=== PATIENT | female | born 1945 | race Caucasian/White ===

== ENCOUNTER → 2016-11-11 09:35 | Outpatient (CLI) | payer MEDICARE, BC ==
[~2016-11-11 09:35] MED LIST: ACETAMINOPHEN500 M1 PO; ADVIL200 MG PO; ATIVAN2 MG/ML IM; CARDIZEM30 MG PO; CLARITIN 10 MG10 MG PO; DEPAKOTE SPRIN125 MG PO; DYAZIDE 37.5/251 CAP PO; FLORANEX / LACT1 TAB PO; GAS-X80 MG PO; HALDOL5 MG/ML IM; HYDROCODONE-APA1 TAB PO; LEXAPRO20 MG PO; LISINOPRIL10 MG PO; MOTRIN PM CAPL1 EACH PO; NORVASC2.5 MG PO; NORVASC5 MG PO; PEPCID20 MG PO; VITAMIN D3400 UNI1 PO
== END | disposition home or self-care (01) ==
LOC: D.RAD 09:00
DX: M25.511 Pain in right shoulder (principal); M54.2 Cervicalgia

== ENCOUNTER 2017-01-15 15:37 | Inpatient (IN) | payer MEDICARE, BC ==
[2017-01-15 17:21] LABS: BASOPHILS 0.3 % (0-2); EOSINOPHILS 1.8 % (0-7); HEMATOCRIT 38.7 % (36.0-48.0); HEMOGLOBIN 12.5 g/dL (12-16); IMMATURE GRANULOCYTES 0.2 % (0-5); LYMPHOCYTES 24.1 % (15-50); MCH 29.4 pg (26.0-34.0); MCHC 32.3 g/dL (31.0-37.0); MCV 91.1 fL (80.0-100.0); MEAN PLATELET VOLUME 10.2 fL (7.4-10.4); MONOCYTES 8.8 % (2-11); NEUTROPHILS 64.8 % (40-80); RBC 4.25 10x6/uL (4.00-5.40); RDW 14.2 % (11.5-14.5); WBC 8.9 10x3/uL (4.8-10.8)
[2017-01-15 17:30] LABS: PLATELET COUNT 236 10x3/uL (130-400)
[2017-01-15 17:42] LABS: UDS - AMPHET NEGATIVE QUAL (NEGATIVE); UDS - BARB NEGATIVE QUAL (NEGATIVE); UDS - BENZO NEGATIVE QUAL (NEGATIVE); UDS - COCAINE NEGATIVE QUAL (NEGATIVE); UDS - OPIATE POSITIVE QUAL (NEGATIVE); UDS - PCP NEGATIVE QUAL (NEGATIVE); UDS - THC NEGATIVE QUAL (NEGATIVE)
[2017-01-15 17:45] LABS: ALBUMIN 3.5 g/dL (3.4-5.0); ALKALINE PHOSPHATASE 87 U/L (46-116); ALT (SGPT) 24 U/L (10-68); CALC OSMOLALITY 274 mosm/kg (275-300); CALCIUM 8.5 mg/dL (8.5-10.1); CARBON DIOXIDE 28.4 mmol/L (21.0-32.0); CHLORIDE - SERUM 102 mmol/L (98-107); CREATININE - SERUM 0.6 mg/dL (0.6-1.3); GLUCOSE 94 mg/dL (74-106); POTASSIUM - SERUM 3.6 mmol/L (3.5-5.1); SODIUM 138 mmol/L (136-145); UREA NITROGEN 10 mg/dL (7-18); eGFR NON AFRICAN AMERICAN > 90 mL/min (90-120)
[2017-01-15 18:06] LABS: APPEARANCE CLEAR (CLEAR); BILIRUBIN NEGATIVE (NEGATIVE); COLOR YELLOW (YELLOW); GLUCOSE NEGATIVE (NEGATIVE); KETONE NEGATIVE (NEGATIVE); NITRITE NEGATIVE (NEGATIVE); PROTEIN NEGATIVE (NEGATIVE); UROBILINOGEN NORMAL (NORMAL)
[2017-01-15 18:07] LABS: BACTERIA FEW /hpf (NONE SEEN); EPITHELIAL CELLS 0-5 /hpf (0-5); RED CELLS - URINE OCC /hpf (0-5)
--- NOTE | 2017-01-15 22:34 | NUR ---
[facility] ACCOMPANIED BY HOSPITAL STAFF AND SECURITY, PATIENT IS RESTLESS AND AGGITATED, PATIENT WAS PLACED ON [address] MOTLEY DUE TO PSYCHOSIS AND DELUSIONS, CODE WORD PER EMERGENCY CONTACT IS Subhash SANDOVAL STATED THAT PATIENT RECIEVED HALDOL 5 MG IM AND ATIVAN 2 MG IM PRIOR TO TRANSPORT TO HALF-WAY, PATIENT IS SLEEPY AND WENT STRIAGHT TO BED ON ARRIVAL TO HALF-WAY.
[2017-01-15] MEDS ORDERED: LIPITOR20 MG PO (22:57)
[2017-01-15] MEDS ORDERED: FUROSEMIDE20 MG PO (22:57)
[2017-01-15] MEDS ORDERED: AMOXICILLIN500 M1 PO (22:58)
[2017-01-15] MEDS ORDERED: TYLENOL W/CODEI1 TAB PO (23:03)
[2017-01-15] MEDS ORDERED: PLAVIX75 MG PO (23:06)
[2017-01-15] MEDS ORDERED: TIAZAC/CARDIZE240 M1 PO (23:09)
[2017-01-15 23:51] LABS: HEMOGLOBIN A1C 6.1 % (4.8-6.0)
[2017-01-15 23:57] VITALS: BP 175/73; BMI 22.9
[2017-01-16 00:02] LABS: CHOL - HDL RATIO 2.3 ratio (2.3-4.1); THYROID STIMULATING HORMONE 2.61 uIU/mL (0.36-3.74)
--- NOTE | 2017-01-16 09:00 | NUR ---
B) PATIENT IS AWAKE, BUT WANTS TO SLEEP, SHE GOT HER OWN TRAY EVEN THOUGH SHE WAS TOLD MULTIPLE TIMES THAT STAFF WOULD GET IT FOR HER AND SHE TRIED TO ANSWER THE TELEPHONE EVEN THOUGH SHE WAS TOLD NOT TO ANSWER IT. SHE AMBULATES AND SHE SAYS SHE WANTS TO STAY IN BED. PATIENT ALSO STATES "I DON'T WANT ANYTHING TO KNOCK ME OUT, I AM ALREADY KNOCKED OUT" MEDICATION EDUCATION PROVIDED. I) PROVIDE PRESCRIBED MEDS. R) PATIENT IS COMPLIANT WITH MEDS. PATIENT IS SITTING UP AND SHE IS SLEEPING IN A CHAIR IN THE DAY ROOM. P) CONTINUE POC.
[2017-01-16 09:52] VITALS: BP 140/68
[2017-01-16 10:05] VITALS: BMI 22.8
[2017-01-16 19:37] VITALS: BP 126/56
--- NOTE | 2017-01-16 22:32 | NUR ---
B) Patient sleepy , arrouses to name, calm and cooperative with care and assessment, I) Administered scheduled medications, monitored for safety, R) Medication compliant, wants to shower herself in morning, P) Continue plan of care.
[2017-01-17 01:33] VITALS: Wt 58.6 kg
[2017-01-17 06:17] LABS: VITAMIN D 25 HYDROXY 31.8 ng/mL (30.0-100.0)
[2017-01-17 08:20] LABS: FOLATE (FOLIC ACID) - SERUM 12.4 ng/mL (>3.0)
--- NOTE | 2017-01-17 08:33 | NUR ---
B) PATIENT IS FLAT TO BLUNTED IN AFFECT. SHE ASKED FOR HER GLASSES THIS AM AND SHE IS TERSE IN HER QUESTIONS AND ANSWERS AND SPEAKS UNDER HER BREATH SHE WALKS AWAY. SHE DOES NOT INTERACT WITH STAFF OR PEERS. SHE AMBULATES WITH AN UNSTEADY GAIT. PATIENT HAS NOT MADE ANY MENTION THIS AM ABOUT "BRAIN SURGERY" OR "DR. ASHLEY". I) PROVIDE PRESCRIBED MEDS. R) PATIENT IS COMPLIANT WITH MEDS AND UNIT MILIEU. P) CONTINUE POC.
[2017-01-17 09:44] VITALS: BP 132/63
--- NOTE | 2017-01-17 11:55 | NUR ---
PATIENT REFUSED HER DEPAKOTE, SHE SAYS SHE WILL REFUSE TODAY AND TALK TO THE TOMORROW ABOUT HER MEDICATION.
[2017-01-17 19:30] VITALS: BP 138/89
--- NOTE | 2017-01-18 03:32 | NUR ---
B) patient is alert and oriented X 4, sleepy , arroused to name, calm and cooperative, I) Administered scheduled medications, monitored for safety R) medication compliant except for Depakote, patient stated she was too sedated to take Depakote, P) Continue plan of care.
--- NOTE | 2017-01-18 06:01 | PN ---
PATIENT:JOLENE GRIDER MEDICAL RECORD: [id number] LOCATION:[facility] ADMISSION DATE: 01/15/17 PROGRESS NOTE DATE OF SERVICE: 01/17/2017 SUBJECTIVE: The patient states "my head is about to explode." OBJECTIVE: The patient continues to appear confused. Speech is tangential. She also continues to exhibit grandiose ideation. She denies having any significant consumption of alcohol or opiates prior to admission, although her drug screen was strongly positive for both. The patient denies the documented facts surrounding her appearance in the Emergency Department. Staff reports the patient continues to be aloof and poorly cooperative. At times, she is conversant and at other times, she is not. The patient had a documented past history of bipolar disorder from multiple previous hospitalizations. This diagnosis was confirmed on her previous hospitalization here. PHYSICAL EXAMINATION: On exam, mood is at the moment euthymic. Affect is brittle. Speech initially is fluent, but becomes tangential as the conversation progresses. Content of thought shows grandiose ideation. Sensorium is unchanged. ASSESSMENT: Bipolar. PLAN: 1. We will add Depakote Sprinkles 250 mg b.i.d. 2. Maintain other medications. 3. Continue supportive therapy. TRANSINT:[id number] Voice Confirmation ID: [id number] DOCUMENT ID: [id number] ALISE LICEA III, MD at 0601 CC: [id number] DICTATION DATE: 01/17/17 1108 DATA OPERATIONS DIRECTOR: 01/17/17 1207 ADM IN [id number] [place] [address]
--- NOTE | 2017-01-18 06:01 | PSY ---
PATIENT NAME:JOLENE GRIDER MEDICAL RECORD: [id number] : 49 LOCATION:[facility] ADMISSION DATE: 01/15/17 ACCOUNT: [id number] PSYCHIATRIC EVALUATION DATE OF EVALUATION: 01/16/17 IDENTIFYING DATA: This is one of numerous lifetime psychiatric contacts and the second [facility] admission for this 71-year-old unmarried white female. HISTORY OF PRESENT ILLNESS: This patient presented to the Emergency Department at [facility] yesterday afternoon. She was extremely agitated and quite confused. She banged on the Emergency Department door and demanded to be admitted for "brain surgery" per Dr. Watt. She threw her keys at the Emergency Room staff and demanded that they move her car for her. When she was informed that Dr. Watt no longer works at [facility], she became extremely irate. She then moved her car and parked in the ambulance bay and it had to of course be moved again. She was assessed by Dr. Wilkerson and felt to be acutely psychotic. Dr. Wilkerson initially placed the patient on a 72-hour hold; but subsequent to this, the patient signed all of her consent forms and so she is no longer on an involuntary status. This patient was admitted to [facility] 2 years ago. At that time, she was diagnosed as having bipolar disorder as well as borderline personality disorder. She had a very difficult hospitalization with frequent episodes of uncooperation, acting out, agitation, and belligerence. However, she was eventually stabilized on Depakote and discharged back home. Contact was maintained at that time with the patient's sister, who lived in [place] at that time. The patient's drug screen on this occasion came back positive for alcohol (1.0) and opiates. She is evidently prescribed opiates on a routine basis by her primary care physician, Dr. Mancilla. Because of severe confusion and current psychosis, the patient is now admitted. PAST MEDICAL HISTORY: Significant for obesity, gastroesophageal reflux disease, osteoarthritis, and hypertension. PAST SURGICAL HISTORY: Includes appendectomy and cholecystectomy. FAMILY HISTORY: Noncontributory. SOCIAL HISTORY: The patient is single. 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 She does not have any children. There is some question as to whether or not she has any substance abuse issue. REVIEW OF SYSTEMS: Noncontributory. MEDICATION: At the time of admission, included Lipitor, Floranex, Lasix, Sunita, Pepcid, Lexapro 20 mg daily, diltiazem, simethicone, Advil, and acetaminophen. The patient also had been prescribed Tylenol No. 3 on a regular basis. MENTAL STATUS: On interview, the patient remains somewhat drowsy. She had been given Haldol and Ativan in the Emergency Department because of her severe agitation and psychosis. Affect at the present time is constricted, although at the time of presentation, she was extremely labile. Speech is tangential. Content of thought at the moment is negative for overt psychosis. The patient is oriented to person and the fact that she is in [facility]. She cannot cooperate for memory testing. DIAGNOSTIC IMPRESSION: AXIS I: Bipolar disorder, depressed phase, subacute delirium. AXIS II: Borderline personality disorder. AXIS III: Hyperlipidemia, GERD, inhalant allergies, and hypertension. AXIS IV: Severe. AXIS V: 38. PLAN: 1. The patient is admitted for further medical and psychiatric workup. 2. Diet and activities as tolerated. 3. Coordinate care with referring physician for aftercare at discharge. TRANSINT:[id number] Voice Confirmation ID: [id number] DOCUMENT ID: [id number] ALISE LICEA III, MD at 0601 CC: [id number] DICTATION DATE: 01/16/17 1105 FUNERAL GREETER: 01/16/17 1204 ADM IN [id number] [place] [address]
[2017-01-18 07:00] VITALS: BP 144/91
--- NOTE | 2017-01-18 17:45 | NUR ---
C/O NAUSEA THIS AM WHICH RESOLVED ON IT'S OWN. INFORMED OF NAUSEA AND ORDERS RECEIVED FOR ZOFRAN 4MG PO EVERY 4HR.PRN NAUSEA.IS ORIENTED BUT DENIES REASON FOR GOING TO ER WAS TO GET BRAIN SURGERY.COMPLIANT WITH MEDS EXCEPT FOR DEPAKOTE.STATES SHE WANTS TO BE ABLE TO GIVE BLOOD AND DEPAKOTE MESSES WITH THE BLOOD.WILL CONTINUE WITH PLAN OF CARE,MONITOR FOR CHANGES AND SAFETY.
[2017-01-18 19:30] VITALS: BP 115/89
--- NOTE | 2017-01-19 01:39 | NUR ---
RECEIVED IN PATIENT ROOM. RESTING IN BED WITH EYES CLOSED. AWAKES TO NAME. CALM AND COOPERATIVE WITH CARE AND ASSESSMENT. NO DELUSIONAL STATEMENTS MADE. ENCOURAGE TO EXPRESS NEEDS. REDIRECT AND REORIENT NEEDED. RESTING IN BED WITH EYES CLOSED AT THIS TIME. CONTINUE PLAN OF CARE.
[2017-01-19 07:00] VITALS: BP 155/84
--- NOTE | 2017-01-19 08:30 | NUR ---
B) PATIENT IS FLAT TO BLUNTED IN AFFECT. SHE IS ISOLATING HERSELF IN DINING ROOM FROM OTHER PATIENTS. SHE IS SOCIALIZING WITH STAFF MORE TODAY. ASSESSMENT COMPLETED PER FLOW SHEET. I) ADMINISTER PRESCRIBED MEDICATIONS. R) COMPLIANT WITH TAKING ALL MEDICATIONS, EXCEPT DEPAKOTE SPRINKLES. SHE SAYS SHE WILL TALK TO HER DOCTOR TOMORROW ABOUT IT, BECAUSE SHE WANTS TO DONATE BLOOD IN FEBRUARY. P) WILL CONTINUE TO MONITOR FOR CHANGES IN STATUS AND CONTINUE PLAN OF CARE.
[2017-01-19 19:30] VITALS: BP 115/86
--- NOTE | 2017-01-19 20:59 | NUR ---
RECEIVED AT [facility]. STANDING AT DESK. CALM AND COOPERATIVE WITH CARE AND ASSESSMENTS. REFUSES PM DEPAKOTE. STATING THAT SHE WONT TAKE IT DUE TO HER WANTING TO GIVE BLOOD.ENCOURAGE TO EXPRESS NEEDS. RESTING IN BED WITH EYES CLOSED. CONTINUE PLAN OF CARE
[2017-01-20 07:00] VITALS: BP 145/76
--- NOTE | 2017-01-20 10:00 | NUR ---
ASSESSMENT COMPLETED PER FLOW SHEET. HAS A FLAT AFFECT TODAY. STILL ISOLATING HER SELF FROM STAFF AND PEERS. REFUSES TO TAKE DEPAKOTE PO. WILL CONTINUE TO MONITOR AND CONTINTINUE PLAN OF CARE.
--- NOTE | 2017-01-20 16:00 | NUR ---
PATIENT RAMBLING FROM ONE CONVERSATION SUBJECT TO ANOTHER. SAYS, "I AM NOT CRAZY, HOMOCIDAL OR SUICIDAL." SHE TALKED ABOUT THE DOG PARK BEING WIRE TAPPED. ALSO TALKS ABOUT THE MOB AND MAFIA BEING IN ON THE SITUATION. '
[2017-01-20 19:34] VITALS: BP 137/65
--- NOTE | 2017-01-20 21:07 | NUR ---
RECEIVED IN HALLWAY. STANDING AT NURSES STATION. CALM AND COOPERATIVE WITH CARE AND ASSESSMENTS. STATES SHE WILL NOT TAKE HER NEW ORDER FOR ZYPREXA. REDIRECT AND REORIENT NEEDED. SITTING ON EDGE OF BED WASHING HER FEET AT THIS TIME. CONTINUE PLAN OF CARE
--- NOTE | 2017-01-20 22:30 | NUR ---
UP TO NURSES STATION. CONFUSED. PARANRADHAA.
[2017-01-21 07:00] VITALS: BP 143/88
--- NOTE | 2017-01-21 10:49 | PN ---
PATIENT:JOLENE GRIDER MEDICAL RECORD: [id number] LOCATION:[facility] ADMISSION DATE: 01/15/17 PROGRESS NOTE DATE OF SERVICE: 01/20/2017 SUBJECTIVE: The patient states that her sister should not have anything to do with the hospitalization. OBJECTIVE: The patient continues to be very noncompliant. She has been refusing medication. She has also shown intrusive behavior with staff and with other patients. On exam, the patient's mood is at times anxious, at other times euthymic. Speech is rambling and tangential. Affect is peculiar, at times expressive and at times blank. Content of thought exhibits grandiose ideation. The patient is very argumentative. Sensorium is unchanged. ASSESSMENT: No change in diagnosis. PLAN: 1. We will discontinue Depakote. 2. Begin Zyprexa 5 mg b.i.d. 3. Continue other medications and supportive therapy. TRANSINT:[id number] Voice Confirmation ID: [id number] DOCUMENT ID: [id number] ALISE LICEA III, MD at 1049 CC: [id number] DICTATION DATE: 01/20/17 1105 SENIOR QUALITY MANAGER: 01/20/17 1209 ADM IN [facility] [address] [place] [address]
--- NOTE | 2017-01-21 11:02 | NUR ---
Nutrition Follow Up: Pt is eating 100% meal avg on a regular diet. +BM 01/17/17. Labs reviewed. Meds noted inlcuding Lasix. Rec continue current diet. RD following.
--- NOTE | 2017-01-21 19:38 | NUR ---
RECEIVED IN HALLWAY. WALKING TO HER BEDROOM. KEEPING TO HERSELF. CALM AND COOPERATIVE WITH CARE AND ASSESSMENTS. NO DELUSIONAL STATEMENTS AT THIS TIME. ENCOURAGE TO EXPRESS NEEDS. RESTING IN BED EYES OPEN AT THIS TIME. CONTINUE PLAN OF CARE
[2017-01-21 20:10] VITALS: BP 113/48
--- NOTE | 2017-01-22 09:30 | NUR ---
Alert, calm, questions all meds but is med-compliant, confused, cooperative with staff, appetite good for b'fast, No s/s adverse reaction to meds, denies pain and needs at this time.
[2017-01-22 09:36] VITALS: BP 136/77
--- NOTE | 2017-01-22 10:25 | PN ---
PATIENT:JOLENE GRIDER MEDICAL RECORD: [id number] LOCATION:[facility] ADMISSION DATE: 01/15/17 PROGRESS NOTE DATE OF SERVICE: 01/21/2017 SUBJECTIVE: No coherent complaint. OBJECTIVE: The patient continues to be extremely paranoid and noncompliant with her medication. She refuses to participate in group activities. She continues to exhibit delusional ideation about the mafia. She states that the government depends on her being able to be out of the hospital. On exam, mood is irritable. Affect is constricted. Speech is very low in volume and virtually inaudible. Content of thought is as noted above. Sensorium is unchanged. ASSESSMENT: No change in diagnosis. PLAN: 1. We will discontinue Zyprexa and substitute Haldol. 2. Continue other current medications and supportive therapy. TRANSINT:[id number] Voice Confirmation ID: [id number] DOCUMENT ID: [id number] ALISE LICEA III, MD at 1025 CC: [id number] DICTATION DATE: 01/21/17 1133 SHEET MILL SUPERVISOR: 01/21/17 1206 ADM IN [facility] [address] [id number]
--- NOTE | 2017-01-22 18:25 | NUR ---
Quiet, sitting in w/c in dayroom watching TV. Denies pain/needs. Cooperative.
[2017-01-22 19:19] VITALS: BP 107/42
--- NOTE | 2017-01-22 22:31 | NUR ---
RECEIVED IN PATIENT ROOM. RESTING IN BED WITH EYES OPEN. CALM AND COOPERATIVE WITH CARE AND ASSESSMENT. NO DELUSIONAL STATEMENTS MADE AT THIS TIME. REDIRECT AND REORIENT NEEDED. ENCOURAGE TO EXPRESS NEEDS. RESTING IN BED WITH EYES CLOSED AT THIS TIME. CONTINUE PLAN OF CARE.
[2017-01-23 08:11] VITALS: BP 151/73
--- NOTE | 2017-01-23 08:38 | NUR ---
B) PATIENT IS AWAKE, BUT SHE WANTS TO LAY DOWN AND NOT SOCIALIZE, SHE DOES SAY "I CAN TAKE MY MEDICINE TODAY" SHE HAS BEEN REFUSING HER HALDOL BECAUSE HER BP IS LOW. SHE AMBULATES INDEPENDENTLY. I) PROVIDE PRESCRIBED MEDS. R) PATIENT IS COMPLIANT WITH MEDS. P) COMPLIANT WITH MEDS AND UNIT MILIEU.
--- NOTE | 2017-01-23 10:29 | PN ---
PATIENT:JOLENE GRIDER MEDICAL RECORD: [id number] LOCATION:[facility]rit[facility]tt ADMISSION DATE: 01/15/17 PROGRESS NOTE DATE OF SERVICE: 01/22/2017 SUBJECTIVE: No new complaint. OBJECTIVE: The patient did take her medication yesterday. She slept quite well last night. She is much more compliant and is participating to a moderate degree in group activities. On exam, mood is euthymic. Affect is quite constricted. Speech is terse. Content of thought is negative for overt psychosis. Sensorium shows no change. ASSESSMENT: No change in diagnosis. PLAN: 1. Continue all current medications. 2. Continue supportive therapy. TRANSINT:[id number] Voice Confirmation ID: [id number] DOCUMENT ID: [id number] ALISE LICEA III, MD at 1029 CC: [id number] DICTATION DATE: 01/22/17 1043 OB/GYN: 01/22/17 1253 ADM IN [address] [place] [address]
[2017-01-23 19:30] VITALS: BP 138/87
--- NOTE | 2017-01-23 22:07 | NUR ---
RECEIVED IN PATIENT ROOM. RESTING IN BED WITH EYES CLOSED. AWAKES TO VOICE. CALM AND COOPERATIVE WITH CARE AND ASSESSMENT. NO DELUSIONAL STATEMENTS MADE. ENCOURAGE TO EXPRESS NEEDS. REDIRECT AND REORIENT NEEDED. RESTING IN BED WITH EYES CLOSED AT THIS TIME. CONTINUE PLAN OF CARE.
--- NOTE | 2017-01-24 09:21 | NUR ---
B) PATIENT IS AWAKE AND ALERT, SHE IS AMBULATORY. SHE KEEPS GOING TO THE BATHROOM EVERY FEW MINUTES, ASKED HER IF SHE WAS HAVING DIARRHEA OR IF SHE THOUGHT SHE HAD A UTI SHE KEEPS GOING TO THE BATHROOM, BUT SHE SAYS "NO" SHE IS PASSING GAS. I) PROVIDE PRESCRIBED MEDS. R) PATIENT IS COMPLIANT WITH MEDS. P) CONTINUE POC.
[2017-01-24 11:12] VITALS: BP 180/90
[2017-01-24 19:54] VITALS: BP 133/67
--- NOTE | 2017-01-24 23:35 | NUR ---
B) Patient is alert and oriented, calm and cooperative with care and assessment, quiet and naps most of the time, I) Administered scheduled medications, monitored for safety, R) Medication compliant, acts distracted at times, P) Continue plan of care.
--- NOTE | 2017-01-25 10:34 | PN ---
PATIENT:JOLENE GRIDER MEDICAL RECORD: [id number] LOCATION:[facility]tt ADMISSION DATE: 01/15/17 PROGRESS NOTE DATE OF SERVICE: 01/24/2017 SUBJECTIVE: The patient's case was discussed with staff. She has no new complaint. OBJECTIVE: The patient is in good behavioral control. She is sleeping and eating well. She denies that she would seek to harm herself or others. ASSESSMENT: No change in diagnoses. PLAN: Brief supportive and educational interventions were made. The patient's long-term prognosis is guarded. TRANSINT:[id number] Voice Confirmation ID: [id number] DOCUMENT ID: [id number] MAYKEL DENNIS MD at 1034 CC: [id number] DICTATION DATE: 01/24/17 1227 FOOD OPERATIONS MANAGER: 01/24/17 1237 ADM IN [id number] [place] [address]
--- NOTE | 2017-01-25 10:36 | NUR ---
B) PATIENT AWAKENED AND ATE BREAKFAST, BUT FELL ASLEEP SOON AFTER. DR. DENNIS IS HERE AND SPOKE TO HER ABOUT DR. LICEA BEING HER PSYCHIATRIST AND THAT HE WOULD LEAVE HIM A NOTE SAYING HE THOUGHT SHE WAS DOING WELL, BUT DR. LICEA WILL BE THE ONE TO DISCHARGE HER. PATIENT VERBALIZED UNDERSTANDING. SHE AMBULATES INDEPENDENTLY. I) PROVIDE PRESCRIBED MEDS. R) PATIENT IS COMPLIANT WITH MEDS. P) CONTINUE POC.
[2017-01-25 11:52] VITALS: BP 140/78
[2017-01-25 20:27] VITALS: BP 134/60
--- NOTE | 2017-01-26 05:25 | NUR ---
B) PATIENT IS ALERT AND ORIENTED, CALM AND COOPERATIVE WITH CARE AND ASSESSMENT, I) ADMINISTERED SCHEDULED MEDICATIONS R) MEDICATION COMPLIANT, RESTING QUIETLY P) CONTINUE PLAN OF CARE.
[2017-01-26 07:00] VITALS: BP 144/62
--- NOTE | 2017-01-26 08:59 | NUR ---
ADMINISTERED MORNING MEDS WHOLE WITHOUT DIFFICULTY. DENIES ANY NEEDS OR PAIN. ALERT AND ORIENTED X4. PLEASANT AFFECT. NO S/SX OF ACUTE DISTRESS NOTED. WILL CONTINUE TO MONITOR
--- NOTE | 2017-01-26 16:25 | NUR ---
ALERT AND ORIENTED.AMBULATORY.COMPLIANT WITHSTAFF AND MEDS.WILL CONTINUE WITH PLAN OF CARE,MONITOR FOR CHANGES AND SAFETY.
--- NOTE | 2017-01-26 19:38 | NUR ---
RECEIVED IN BEDROOM. RESTING IN BED WITH EYES OPEN. ALERT. CALM AND COOPERATIVE WITH CARE AND ASSESSMENTS. NO DELUSIONAL STATEMENTS MARKEL THIS PM. ENCOURAGE TO EXPRESS NEEDS. RESTING IN BED EYES CLOSED AT THIS TIME. CONTINUE PLAN OF CARE
[2017-01-26 20:07] VITALS: BP 110/59
[2017-01-27 07:00] VITALS: BP 134/87
--- NOTE | 2017-01-27 09:18 | NUR ---
PT TOOK ALL MEDS IN DAY ROOM COOPERATIVE AND PLEASEANT NO PROBLEMS WILL MONITER
[2017-01-27] MEDS ORDERED: HALDOL5 MG PO (11:01)
[2017-01-27] MEDS ORDERED: HALOPERIDOL1 MG PO (11:01)
[2017-01-27] MEDS ORDERED: VITAMIN B-121000 MCG PO (11:02)
[2017-01-27] MEDS ORDERED: VITAMIN D5000 UNIT PO (11:02)
--- NOTE | 2017-01-27 14:12 | PN ---
PATIENT:JOLENE GRIDER MEDICAL RECORD: [id number] LOCATION:[facility] ADMISSION DATE: 01/15/17 PROGRESS NOTE DATE OF SERVICE: 01/26/2017 SUBJECTIVE: The patient's case was discussed with staff. She has no new complaint. OBJECTIVE: The patient is in good behavioral control with limited insight about her condition. ASSESSMENT: No change in diagnoses. PLAN: Current medicines have been reviewed and will be maintained. Long-term prognosis is guarded. Brief supportive and educational interventions were made. TRANSINT:[id number] Voice Confirmation ID: [id number] DOCUMENT ID: [id number] MAYKEL DENNIS MD at 1412 CC: [id number] DICTATION DATE: 01/26/17 1053 SPRING MACHINE OPERATOR: 01/26/17 1330 ADM IN [facility] [address] [place] [address]
--- NOTE | 2017-01-27 14:12 | PN ---
PATIENT:JOLENE GRIDER MEDICAL RECORD: [id number] LOCATION:[facility] ADMISSION DATE: 01/15/17 PROGRESS NOTE DATE OF SERVICE: 01/25/2017 SUBJECTIVE: The patient's case was discussed with staff. She has no new complaint. OBJECTIVE: The patient is in good behavioral control. She has not been aggressive. She still is somewhat hyperverbal and intrusive, but less so. On the whole, she is better and she is anxious to be discharged as soon as reasonably possible. ASSESSMENT: No change in diagnoses. PLAN: Current medicines have been reviewed and will be maintained. Her long-term prognosis is guarded. TRANSINT:[id number] Voice Confirmation ID: [id number] DOCUMENT ID: [id number] MAYKEL DENNIS MD at 1412 CC: [id number] DICTATION DATE: 01/25/17 1038 SOFTLINES SUPERVISOR: 01/25/17 1138 ADM IN [id number] [place] [id number]
--- NOTE | 2017-01-27 18:00 | NUR ---
PT ASKING WHAT TO DO ABOUT MALE PT THAT SHE SAYS CONSTANTLY BOTHERS HER SHE SAID HE JUST ASK HER QUESTIONS I SAID IF HE IS NOT DOING ANYTHING HARFUL TO YOU JUST IGNORE IT HAVE NOT OBSERVED ANYONE BOTHERING HER WILL MONITER
[2017-01-27 19:30] VITALS: BP 104/60
--- NOTE | 2017-01-27 23:38 | NUR ---
RECEIVED IN BEDROOM. RESTING IN BED EYES CLOSED. RESPONDS TO VOICE. CALM AND COOPERATIVE WITH CARE AND ASSESSMENTS. ALERT AND ORIENTED. ENCOURAGE TO EXPRESS NEEDS. RESTING IN BED EYES CLOSED AT THIS TIME. CONTINUE PLAN OF CARE
[2017-01-28 10:23] VITALS: BP 85/57
--- NOTE | 2017-01-28 12:21 | NUR ---
Nutrition Follow Up: Pt is eating 96% meal avg on a regular diet. +BM 10/29/16. Meds noted including Lasix. Labs reviewed. Rec continue current diet. RD following.
--- NOTE | 2017-01-28 12:25 | NUR ---
B) PATIENT IS AWAKE AND ALERT, SHE AMBULATES INDEPENDENTLY, SHE IS BEING D/C'D TO HOME TODAY, DID GET HER MEDS FROM PHARMACY AND HER PERSONAL BELONGINGS FROM THE [facility] HER CLOTHES ARE ACCOUNTED. I) CALLED D/C MEDS TO PHARMACY, R) PATIENT HAS APPTS AND D/C INSTRUCTIONS. P) PATIENT IS D/C'D OFF [facility].
--- NOTE | 2017-01-29 08:00 | DS ---
PATIENT:JOLENE GRIDER :49 MEDICAL RECORD: [id number] DISCHARGE SUMMARY ADMISSION DATE: 01/15/17 DISCHARGE DATE: 01/28/17 DATE OF ADMISSION: 01/15/2017 DATE OF DISCHARGE: 01/28/2017 HISTORY: This was one of numerous lifetime psychiatric contacts and the [facility] admission for this 71-year-old unmarried white female. The patient had previously been admitted and given a diagnosis of bipolar disorder. The patient was extremely agitated and delusional at the time of presentation in the hospital. She had driven herself to the Emergency Department and claimed that she needed to be admitted for "brain surgery." The patient required p.r.n. medication to control her agitation. For further details, please see previously dictated history. COURSE IN THE HOSPITAL: The patient was seen in consultation by Dr. Ferrera. Dr. Ferrera noted the presence of several ongoing medical problems including hypertension, GERD, and osteoarthritis. From a medication standpoint, the patient was somewhat difficult to treat. She was originally prescribed Zyprexa and later, Depakote. She refused these medications. During this time, she remained intrusive, hyperactive, actively delusional and difficult to redirect. Eventually, she agreed to take Haldol on a routine basis. Dosage was stabilized at 2 mg in the morning and 5 mg in the evening. The patient showed excellent response to this medication and rapid diminution of her manic symptoms. Several times, the patient was very strongly encouraged to change to another medication due to the potential for side effects with Haldol; however, she very persistently refused to do this and stated that although she knew she needed medication, she preferred to stay on Haldol. By the time of discharge, the patient had stabilized considerably and was no longer acutely manic nor psychotic. FINAL DIAGNOSES: AXIS I: Bipolar disorder -- mixed -- improving. AXIS II: No diagnosis. AXIS III: Osteoarthritis, hyperlipidemia, GERD and hypertension. AXIS IV: Moderate. AXIS V: 50. PLAN: 1. The patient was strongly encouraged to follow up at [facility] or psychiatrist of her choice. 2. Follow up with primary care. 3. Continue current medications. 4. Diet and activities as tolerated. TRANSINT:[id number] Voice Confirmation ID: [id number] DOCUMENT ID: [id number] DISCHARGE SUMMARY REPORT [id number] CASE,JOLENE LICEA III, ALISE Melendrez MD at 0800 CC: [id number] DICTATION DATE: 01/28/17 1010 WOOD MACHINIST: 01/28/17 1226 DIS IN 01/28/17 [address] [place] [address]
--- NOTE | 2017-01-29 08:00 | PN ---
PATIENT:JOLENE GRIDER MEDICAL RECORD: [id number] LOCATION:[facility] ADMISSION DATE: 01/15/17 PROGRESS NOTE DATE OF SERVICE: 01/27/2017 SUBJECTIVE: No new complaint. OBJECTIVE: The patient has done well over the weekend. She is taking her medications as prescribed. She still does not wish to change to a second generation neuroleptic. PHYSICAL EXAMINATION: On exam, mood is euthymic. Affect is bland. Speech is fairly fluent. Content of thought is negative for overt psychosis. Sensorium is unchanged. ASSESSMENT: No change in diagnosis. PLAN: 1. Maintain current medications. 2. Anticipate discharge tomorrow. TRANSINT:[id number] Voice Confirmation ID: [id number] DOCUMENT ID: [id number] ALISE LICEA III, MD at 0800 CC: [id number] DICTATION DATE: 01/27/17 1105 HEALTH SPECIALIST: 01/27/17 1114 DIS IN 01/28/17 [address] [place] [address]
--- NOTE | 2017-01-29 08:00 | PN ---
PATIENT:JOLENE GRIDER MEDICAL RECORD: [id number] LOCATION:[facility] ADMISSION DATE: 01/15/17 PROGRESS NOTE DATE OF SERVICE: 01/23/2017 SUBJECTIVE: No new complaint. OBJECTIVE: The patient continues to show improvement while taking Haldol; however, she very stubborn, may refuses to take any other medication despite the fact that she has been told repeatedly that Haldol can overtime produce significant side effects and that there are other medications, which are vastly superior and run much less risk of side effects. The patient is quite obstinate in her refusal, but in other respects is showing less overt manic behavior. PHYSICAL EXAMINATION: On exam, mood is for the most part euthymic. Affect is flattened. Speech is monotonous in quality. Content of thought as noted above. Sensorium shows no change. ASSESSMENT: No change in diagnosis. PLAN: 1. We will change Haldol to 2 mg in the morning and 5 mg at bedtime. 2. Continue other current medications and supportive therapy. TRANSINT:[id number] Voice Confirmation ID: [id number] DOCUMENT ID: [id number] ALISE LICEA III, MD at 0800 CC: [id number] DICTATION DATE: 01/23/17 1051 FINANCE AND ADMINISTRATION MANAGER: 01/23/17 1114 DIS IN 01/28/17 [id number] [place] [address]
== END 2017-01-28 12:30 | disposition home or self-care (01) | DRG 885 ==
LOC: D.ER 15:37 → D.PSYCH 21:28
PROVIDERS: Physician Assistant; ADMIT Psychiatry & Neurology Psychiatry
DX: F31.30 Bipolar disorder, current episode depressed, mild or moderate severity, unspecified (principal); N39.0 Urinary tract infection, site not specified; F05 Delirium due to known physiological condition; F41.9 Anxiety disorder, unspecified; M19.90 Unspecified osteoarthritis, unspecified site; E78.5 Hyperlipidemia, unspecified; K21.9 Gastro-esophageal reflux disease without esophagitis; I10 Essential (primary) hypertension; F60.3 Borderline personality disorder; E55.9 Vitamin D deficiency, unspecified

== ENCOUNTER 2018-01-21 07:56 | Outpatient (CLI) | payer MEDICARE, BC ==
[2017-01-17 01:33] VITALS: BMI 22.9
[~2018-01-21 07:56] MED LIST changes: +AMOXICILLIN500 M1 PO; +FUROSEMIDE20 MG PO; +HALDOL5 MG PO; +HALOPERIDOL1 MG PO; +LIPITOR20 MG PO; +PLAVIX75 MG PO; +TIAZAC/CARDIZE240 M1 PO; +TYLENOL W/CODEI1 TAB PO; +VITAMIN B-121000 MCG PO; +VITAMIN D5000 UNIT PO
== END 2018-01-21 23:59 | disposition home or self-care (01) ==
LOC: D.MAMMO 07:56
DX: Z12.31 Encounter for screening mammogram for malignant neoplasm of breast (principal)

== ENCOUNTER → 2018-11-30 08:13 | Outpatient (CLI) | payer MEDICARE, BC ==
[2017-01-17 01:33] VITALS: BMI 22.9
--- NOTE | 2018-12-04 13:28 | ST ---
PATIENT:JOLENE GRIDER MEDICAL RECORD: [id number] SEX: F LOCATION:[facility] ORDER #: ADMISSION DATE: 11/30/18 AGE OF PATIENT: 73 REFERRING PHYSICIAN: INTERPRETING PHYSICIAN: KEMAL LEHMAN MD DATE OF SERVICE: 11/30/2018 INDICATIONS: Angina, hypertension, hyperlipidemia, shortness of breath. She was exercised on standard Lexiscan protocol with 33 mCi of sestamibi injected at peak stress, 11 mCi used previously for rest images. FINDINGS: Gated SPECT reveals preserved ejection fraction at 67% with good wall motioning and thickening and brightening throughout all segments. SPECT IMAGING: Cardiolite was used as myocardial perfusion agent. There is reversibility inferiorly, anteriorly and apically. This includes basal, mid, apical inferior segments and basal, mid and apical anterior segments as well as the apex itself. The degree of reversibility is moderate. The amount of myocardial involved is very large. OVERALL IMPRESSION: This is a high-risk abnormal nuclear stress test, large amount of myocardium involved and reversible ischemia anteriorly, inferiorly and apically suggestive of multivessel coronary artery disease. TRANSINT:[id number] Voice Confirmation ID: [id number] DOCUMENT ID: [id number] KEMAL LEHMAN MD at 1328 CC: YULI JAIN [id number] DICTATION DATE: 11/30/18 1618 NET DEVELOPER ARCHITECT: 12/01/18 0441 [facility] CLI 11/30/18 [facility] [address] [place] [address]
== END | disposition home or self-care (01) ==
LOC: D.HCCARDIO 08:13
PROVIDERS: ATTEND Internal Medicine Interventional Cardiology
DX: I20.9 Angina pectoris, unspecified (principal); I10 Essential (primary) hypertension; E78.5 Hyperlipidemia, unspecified; R06.02 Shortness of breath

== ENCOUNTER 2018-12-18 09:49 | Outpatient (CLI) | payer MEDICARE, BC ==
[~2018-12-18] VITALS: Ht 160 cm; Wt 112.3 kg
--- NOTE | ~2018-12-18 | HEMODYNAMI ---
PATIENT:JOLENE GRIDER MEDICAL RECORD: [id number] : 49 LOCATION:[facility] ADMISSION DATE: 12/18/18 Generatedon:12/18/201813:30 Patient name: JOLENE GRIDER Patient #: [id number] SSN: : 1945 Date of study: 12/18/2018 Page: Of Hemodynamic Procedure Report Patient Data Patient Demographics Procedure consent was obtained First Name: JOLENE Gender: Female Last Name: CHEO : 1945 Middle Initial: E Age: 73 year(s) Patient #: [id number] Race: Unknown Additional ID: [id number] Contact details Address: [address] [place] [address] State: [place] City: [facility] Zip code: [address] Admission Admission Data Admission Date: 12/18/2018 Admission Time: 9:49 Height (in.): 63 BSA: 2.12 (m2) Height (cm.): 160.02 BMI: 43.84 (kg/m2) Weight (lbs.): 247.51 Weight (kg.): 112.27 Lab Results Lab Result Date: 12/18/2018 Lab Result Time: 0:00 Biochemistry Name Units Result Min Max BUN mg/dl 9 --(*---)-- 7 18 Creatinine mg/dl 0.8 --(-*--)-- 0.6 1.3 eGFR ml/min 90 --(*---)-- 90 120 AM CBC Name Units Result Min Max Hemoglobin g/dl 13.4 -*(----)-- 13.5 17.5 Procedure Procedure Types Cath Procedure Diagnostic Procedure C [facility] w/Coronaries Procedure Description Procedure Date Procedure Date: 12/18/2018 Procedure Start Time: 13:18 Procedure End Time: 13:26 Procedure Staff Name Function Lazarus Degroot RT Monitor Naman Urena MD Performing Physician Carroll Soto RN Nurse Brittni Nuñez RT Scrub Procedure Data Cath Procedure Fluoroscopy Diagnostic fluoroscopy Total fluoroscopy Time: 2.1 time: 2.1 min min Diagnostic fluoroscopy Total fluoroscopy dose: 813 dose: 813 mGy mGy Contrast Material Contrast Material Type Amount (ml) Isovue 300 78 Entry Location Entry Primary Successful Side Size Upsize Upsize Entry Closure Lemus ccessful Closure Location (Fr) 1 (Fr) 2 (Fr) Remarks Device Remarks Femoral Right 6 Fr Mechanical artery Short Compression Estimated blood loss: 10 ml Diagnostic catheters Device Type Used For End Catheter Placement DIAGNOSTIC Volcano 110cm 5 Procedure Fr catheter ([id number]) Procedure Complications No complications Procedure Medications Medication Administration Route Dosage 0.9% NaCl I.V. 100 ml/hr Oxygen etCO2 Nasal cannula 2 l/min Heparin Flush Bag added to field 2 bags (1000units/500ml NS) Lidocaine 2% added to field 20 Radial Cocktail added to field 1 syringe (Verapamil 2mg/Nitro 400mcg/Heparin 1500units) Versed I.V. 1 mg Fentanyl I.V. 50 mcg Radial Cocktail I.A. 1 syringe (Verapamil 2mg/Nitro 400mcg/Heparin 1500units) Hemodynamics Rest BSA: 2.12 (m2) HGB: 13.4 (g/dl) O2 Consumption: Estimated: 193.11 (ml/min) O2 Co nsumption indexed: Estimated:91.09 (ml/min/m) Heart Rate: 68 (bpm) Snapshots Pre Cath Intra NCS Post Cath Vital Signs Time Heart Resp SPO2 etCO2 NIBP (mmHg) Rhythm Pain Sedation Rate (ipm) (%) (mmHg) Status Level (bpm) 13:03:23 68 18 93 0 165/88(123) NSR 0 (11) 10(A) , No pain 13:07:39 67 14 92 27.3 159/82(112) NSR 0 (11) 10(A) , No pain 13:11:55 69 17 93 0 148/80(111) NSR 0 (11) 10(A) , No pain 13:16:07 69 16 92 0 153/82(113) NSR 0 (11) 10(A) , No pain 13:20:21 69 18 93 0 137/75(99) NSR 0 (11) 9(A) , No pain 13:24:29 72 19 91 38.6 146/77(103) NSR 0 (11) 9(A) , No pain Medications Time Medication Route Dose Verified Delivered Reason Notes Effectiveness by by 13:09:39 0.9% NaCl I.V. 100 Carroll Carroll Per ml/hr Charles Soto physician RN RN 13:09:50 Oxygen etCO2 2 l/min Carroll Carroll for low 02 Nasal Lorigan Charles sats cannula RN RN 13:10:00 Heparin Flush added 2 bags Carroll Carroll used for Bag to Lorcorbin Soto procedure (1000units/500ml field RN RN NS) 13:10:18 Lidocaine 2% added 20ml Carroll Carroll for local to vial Lorigan Lorigan anesthetic field RN RN 13:10:29 Radial Cocktail added 1 Carroll Carroll used for (Verapamil to syringe Lorigan Manjuigan procedure 2mg/Nitro field RN RN 400mcg/Hepari 13:16:05 Versed I.V. 1 mg Carroll Carroll for sedation Charles Soto RN RN 13:16:13 Fentanyl I.V. 50 mcg Carroll Carroll for sedation Charles Soto RN RN 13:19:23 Radial Cocktail I.A. 1 Carroll Naman for (Verapamil syringe Charles Urena MD vasodilation 2mg/Nitro RN 400mcg/Hepari Procedure Log Time Note 12:35:22 Carroll Soto RN sent for patient. Start room use. 12:45:23 Time tracking: Regular hours (M-F 7:00 - 5:00) 12:45:30 Plan of Care:Hemodynamics will remain stable., Cardiac rhythm will remain stable., Comfort level will be maintained., Respiratory function will remain adequate., Patient/ family verbilizes understanding of procedure., Procedure tolerated without complication., Recovers from procedure without complications.. 12:49:03 Patient Height : 63 inches 12:49:08 Patient Weight : 247.51 lbs 12:50:07 Lab Result : eGFR AM 90 ml/min 12:50:07 Lab Result : Hemoglobin 13.4 g/dl 12:50:07 Lab Result : BUN 9 mg/dl 12:50:07 Lab Result : Creatinine 0.8 mg/dl 12:50:34 Stress Test: yes; abnormal anterior, inferior, apical 12:50:38 Risk of Mortality: 0.1 12:50:43 Risk of blood transfusion: 1.5 12:50:51 Risk of NANY: 0.6 12:50:54 Lab results completed and on chart. 12:51:17 Patient received from Pre/Post Procedure Room to CCL 2 Alert and oriented. Tansferred to table in Supine position. 12:51:19 Warm blankets applied, and navin hugger turned on for patient comfort. 12:51:19 Signed procedure consent form obtained from patient. 12:51:20 ECG and BP/O2 sat monitors applied to patient. 12:51:20 Correct patient and procedure confirmed by team. 13:02:17 Vital chart was started 13:02:18 Baseline sample Acquired. 13:02:24 Rhythm: sinus rhythm 13:02:25 Full Disclosure recording started 13:05:55 H&P Date Dictated: 11/25/2018 Within 30 days and on chart., H&P Addendum completed by physician on day of procedure. (MUST COMPLETE FOR ALL OUTPATIENTS). 13:05:57 Pre-op teaching completed and patient verbalized understanding. 13:05:57 Pre-procedure instructions explained to patient. 13:06:27 Family in patients room. 13:06:32 Patient NPO since Midnight. 13:06:34 Is the patient allergic to Iodine/contrast media? No. 13:07:00 Is patient on blood thinner?Yes 13:07:02 ACC The patient was administered the following blood thiners within the last 24 hours: ACCPlavix 13:07:05 Patient diabetic? No. 13:07:27 Previous problem with sedation/anesthesia? No ? 13:07:30 Snore? Yes 13:07:39 Sleep apnea? Yes 13:07:40 Deviated septum? No 13:07:41 Opens mouth fully? Yes 13:07:42 Sticks out tongue? Yes 13:07:45 Airway obstruction? No ? 13:07:48 Dentures? No ? 13:07:56 Pre procedure: right dorsailis pedis pulse 1+ Palpable, but thready & weak; easily obliterated 13:07:58 Modified Melvin's test Ulnar < 7 seconds 13:08:02 Patient pain scale 0/10 ?. 13:08:54 IV patent on arrival in left forearm with 0.9% NaCl at O. 13:09:39 0.9% NaCl 100 ml/hr I.V. was administered by Carroll Soto RN; Per physician; Verbal order read back and verified. 13:09:50 Oxygen 2 l/min etCO2 Nasal cannula was administered by Carroll Soto RN; for low 02 sats; Verbal order read back and verified. 13:09:55 Right Radial & Right Groin area was prepped with chlora-prep and draped in sterile fashion 13:09:56 Alarms reviewed by R. N. 13:09:57 Sharps counted by scrub and verified by R.N. 13:10:00 Heparin Flush Bag (1000units/500ml NS) 2 bags added to field was administered by Carroll Soto RN; used for procedure; Verbal order read back and verified. 13:10:18 Lidocaine 2% 20ml vial added to field was administered by Carroll Soto RN; for local anesthetic; Verbal order read back and verified. 13:10:29 Radial Cocktail (Verapamil 2mg/Nitro 400mcg/Heparin 1500units) 1 syringe added to field was administered by Carroll Soto RN; used for procedure; Verbal order read back and verified. 13:10:58 Physician arrived 13:10:59 --------ALL STOP TIME OUT------ 13:11:00 Final Timeout: patient, procedure, and site verified with staff and physician. All members of the team are in agreement. 13:11:03 Right Radial & Right Groin site verified by team. 13:11:06 Fire Safety Assessment: A--An alcohol-based skin anteseptic being used preoperatively., C--Open oxygen or nitrous oxide is being used., D--An ESU, laser, or fiber-optic light is being used. 13:11:09 Physical assessment completed. ASA score P 2 - A patient with mild systemic disease as per Naman Urena MD. 13:11:12 1) 90+ Normal kidney functon but urine findings or structural abnormalities or genetic trait point to kidney disease. 13:11:15 Maximum allowable contrast dose (3.7 X eGFR X 0.75)250 ml. 13:11:29 Sedation plan: IV Moderate Sedation Medication:Versed, Fentanyl 13:13:53 Use device set Radial Dx or PCI 13:14:00 Tegaderm 4 x 4 (1626W) opened to sterile field. 13:14:01 ACIST Manifold (78427) opened to sterile field. 13:14:02 ACIST Hand Control (08077) opened to sterile field. 13:14:03 Bag Decanter () opened to sterile field. 13:14:03 Medline Cath Pack ([id number]) opened to sterile field. 13:14:03 ACIST Syringe (72516) opened to sterile field. 13:14:04 MBrace Wrist Support ([id number]) opened to sterile field. 13:14:06 EMERALD Guide Wire (537-474) opened to sterile field. 13:14:08 SHEATH 6FR RAIN (6666390) opened to sterile field. 13:15:59 Zero performed for pressure channel P1 13:16:05 Versed 1 mg I.V. was administered by Carroll Soto RN; for sedation; Verbal order read back and verified. 13:16:13 Fentanyl 50 mcg I.V. was administered by Carroll Soto RN; for sedation; Verbal order read back and verified. 13:18:03 Procedure started. 13:18:10 Local anesthetic to right radial artery with Lidocaine 2% by Naman Urena MD.INITIAL ACCESS ONLY 13:18:40 A 6 Fr Short sheath was inserted into the Right Femoral artery 13:19:09 A DIAGNOSTIC Volcano 110cm 5 Fr catheter (337306) was advanced over the wire and used for Procedure. 13:19:23 Radial Cocktail (Verapamil 2mg/Nitro 400mcg/Heparin 1500units) 1 syringe I.A. was administered by Naman Urena MD; for vasodilation; Verbal order read back and verified. 13:20:13 LV angiography performed. 13:20:16 LV gram done using CHENG 13:20:22 EF : 55 % 13:20:26 Injector settings: Ml/sec: 5, Volume: 15, 13:20:52 LCA angiography performed. 13:22:34 RCA angiography performed. 13:22:57 Catheter removed. 13:23:11 ZEPHYR REGULAR TR BAND (917433) opened to sterile field. 13:23:23 Sheath removed intact; hemostasis achieved with Mechanical Compression to the Right Femoral artery. 13:23:26 Procedure ended.(Physican Out) 13:24:00 Fluoroscopy time 02.10 minutes. 13:24:03 Fluoroscopy dose: 813 mGy 13:24:03 Flurop Dose total: 813 13:24:10 Dose Area Product 04781 mGy/cm. 13:24:13 Contrast amount:Isovue 300 78ml. 13:24:15 Maximum allowable dose exceeded? No. 13:24:16 Sharps counted by scrub and verified by R.N. 13:24:17 Insertion/operative site no bleeding no hematoma. 13:24:18 Helm band inflated with 10cc of air. 13:24:20 Post Procedure Pulses reassessed and unchanged 13:24:22 Post-procedure physical assessment completed. ASA score P 2 - A patient with mild systemic disease as per Naman Urena MD. 13:24:24 Post procedure rhythm: unchanged. 13:24:30 Estimated blood loss: 10 ml 13:24:31 Post procedure instruction explained to patient.Patient verbalizes understanding. 13:24:32 Patient needs reinforcement of post procedure teaching. 13:24:49 Procedure and supply charges have been captured, reviewed, submitted and are correct. 13:24:51 Procedure Complication : No complications 13:26:33 Vital chart was stopped 13:26:34 [facility] Findings: mild to moderate CAD (<70%) 13:26:37 See physician's report for complete and final results. 13:26:37 Operative report dictated upon procedure completion. 13:26:39 Report given to Pre/Post Procedure Room. 13:26:42 Patient transfered to Pre/Post Procedure Room with Stretcher. 13:26:47 Procedure ended. 13:26:47 Full Disclosure recording stopped 13:27:58 End room use (Document Last) Device Usage Item Name Manufacture Quantity Catalog Hospital Part Current Minima l Lot# / Number Charge Number Stock Stock Serial# Code Tegaderm 4 3M 1 1626W [id number] 245186 513409 5 x 4 (1626W) ACIST Acist 1 16045 110129 477684 328402 5 Manifold Medical (01715) Systems Inc ACIST Hand Acist 1 70493 212743 564872 710629 5 Control Medical (65206) Systems Inc ACIST Acist 1 41615 814353 224823 039638 20 Syringe Medical (60561) Systems Inc Medline Medline 1 [id number] 636223 08667 996638 5 Cath Pack ([id number]) Bag Microtek 1 290600 63933 333325 5 Decanter Medical Inc. (2002S) MBrace Advanced 1 140-0250-00 321125 16263 223690 5 Wrist Vascular Support Dynamics ([id number]) EMERALD Cardinal 1 502-455 168343 553418 504693 5 Guide Wire Health (873-455) SHEATH 6FR Cardinal 1 9767546 144200 7917899 511157 5 RAIN Health (6086917) DIAGNOSTIC Terumo 1 40-6473 965060 038619 822660 5 Volcano 110cm 5 Fr catheter (207297) ZEPHYR Cardinal 1 190290 951431 4493790 632276 5 REGULAR TR Health BAND (013864) Signature Audit [place] Stage Time Signature Unsigned Intra-Procedure 12/18/2018 Lazarus Degroot 1:27:02 PM RT(R) Intra-Procedure 12/18/2018 Carroll 1:27:36 PM Charles RN Intra-Procedure 12/18/2018 Naman Urena 1:30:04 PM Signatures Monitor : Lazarus Degroot RT Signature : Date : Time : Performing Physician : Signature : Naman Urena MD Date : Time : Nurse : Carroll Soto Signature : RN Date : Time : [facility] [address] [place] [address]
[2018-12-18 10:19] VITALS: BP 147/85; Ht 160 cm; Wt 112.3 kg
[2018-12-18 10:36] LABS: BASOPHILS 0.2 % (0-2); EOSINOPHILS 0.5 % (0-7); HEMATOCRIT 41.4 % (36.0-48.0); HEMOGLOBIN 13.4 g/dL (12-16); IMMATURE GRANULOCYTES 0.1 % (0-5); LYMPHOCYTES 13.6 % (15-50); MCH 29.5 pg (26.0-34.0); MCHC 32.4 g/dL (31.0-37.0); MCV 91.2 fL (80.0-100.0); MEAN PLATELET VOLUME 10.4 fL (7.4-10.4); MONOCYTES 8.8 % (2-11); NEUTROPHILS 76.8 % (40-80); PLATELET COUNT 229 10x3/uL (130-400); RBC 4.54 10x6/uL (4.00-5.40); RDW 14.1 % (11.5-14.5); WBC 9.7 10x3/uL (4.8-10.8)
[2018-12-18 10:45] LABS: CALC OSMOLALITY 278 mosm/kg (275-300); CALCIUM 9.2 mg/dL (8.5-10.1); CHLORIDE - SERUM 103 mmol/L (98-107); CREATININE - SERUM 0.8 mg/dL (0.6-1.3); GLUCOSE 111 mg/dL (74-106); POTASSIUM - SERUM 3.9 mmol/L (3.5-5.1); SODIUM 140 mmol/L (136-145); UREA NITROGEN 9 mg/dL (7-18); eGFR NON AFRICAN AMERICAN 75 mL/min (90-120)
--- NOTE | 2018-12-18 13:42 | NUR ---
PT ARRIVED BY STRETCHER. PLACED ON MONITORS, ASSESSMENT COMPLETED. NO FAMILY AT BEDSIDE.
--- NOTE | 2018-12-18 14:00 | NUR ---
R RADIAL Z BAND IN PLACE, NO BLEEDING/HEMATOMA NOTED PT HOB UP TO 30*, DENIES PAIN/NAUSEA
--- NOTE | 2018-12-18 14:30 | NUR ---
2CC AIR RELEASED FROM Z BAND. NO BLEEDING/HEMATOMA NOTED. VSS. PT ON ROOM AIR, O2 SAT 93%. FRIEND AT BEDSIDE. CALL LIGHT IN REACH.
--- NOTE | 2018-12-18 14:50 | NUR ---
4CC RELEASED FROM Z BAND. NO BLEEDING/HEMATOMA NOTED. FRIEND AT BEDSIDE. PT WITHOUT COMPLAINTS.
--- NOTE | 2018-12-18 15:05 | NUR ---
4cc OF AIR REMOVED FROM Z BAND. NO BLEEDING/HEMATOMA NOTED. CALL LIGHT WITHIN REACH. VSS.
--- NOTE | 2018-12-18 15:15 | NUR ---
Z BAND REMOVED AND DRESSING APPLIED. NO BLEEDING/HEMATOMA NOTED. PIV D/C'D WITH CATH TIP INTACT. TOLERATED WELL. PT ASSISTED IN GETTING DRESSED. AMBULATED TO RESTROOM. RIGHT WRIST BRACE IN PLACE. STEADY GAIT NOTED.
--- NOTE | 2018-12-18 15:30 | NUR ---
DISCUSSED DISCHARGE INSTRUCTIONS WITH PT. SHE VOICED UNDERSTANDING. ALL BELONGINGS AND PAPERWORK IN HAND. TAKEN OUT TO VEHICLE BY WHEELCHAIR. NO S/S OF DISTRESS NOTED.
--- NOTE | 2018-12-23 14:07 | OP ---
PATIENT NAME: JOLENE GRIDER MEDICAL RECORD: [id number] :49 LOCATION:[facility] ADMISSION DATE: SURGEON: KEMAL LEHMAN MD DATE OF OPERATION: 12/18/2018 DATE OF SERVICE: 12/18/2018 PROCEDURES: 1. Left heart catheterization. 2. Selective coronary angiography. 3. Left ventriculogram. INDICATION: Angina, abnormal nuclear stress test. PROCEDURE IN DETAIL: After informed consent was obtained and after a detailed description of the risks, benefits as well as alternative therapies, the patient elected to proceed with angiogram and heart catheterization. The right radial area was prepped and draped in normal sterile fashion. Right radial artery was cannulated via modified Seldinger technique with placement of 5-Luxembourgish sheath. All catheters exchanged through this sheath. FINDINGS: Left ventriculogram was performed in standard 30-degree CHENG view, reveals good cardiac wall motion throughout all segments. Overall ejection fraction estimated at 55%. SELECTIVE CORONARY ANGIOGRAPHY: Left main, left anterior descending, left circumflex, right coronary artery have minimal irregularities, but no flow-limiting stenosis. OVERALL IMPRESSION: Minimal coronary artery disease is present. No flow-limiting stenosis. Chest pain is noncardiac in etiology with false positive stress test. Continue medical management of the coronary artery disease and cardiac risk factors. TRANSINT:[id number] Voice Confirmation ID: [id number] DOCUMENT ID: [id number] KEMAL LEHMAN MD at 1407 CC: [id number] DICTATION DATE: 12/18/18 1327 BPO SPECIALIST: 12/18/18 1443 DEP CLI 12/18/18 [place] [id number]
== END 2018-12-18 15:30 | disposition home or self-care (01) ==
LOC: D.CATH 09:49
PROVIDERS: ATTEND Internal Medicine Interventional Cardiology
DX: R07.9 Chest pain, unspecified (principal); R94.30 Abnormal result of cardiovascular function study, unspecified